=== PATIENT | male | born 1975 | race Native Hawaiian/Other Pacific Islander ===

== ENCOUNTER 2016-11-07 13:55 | Outpatient (CLI) | payer OTHER | END 2016-11-07 15:00 | disposition home or self-care (01) | LOC: MRI 13:55 | DX: M54.17 Radiculopathy, lumbosacral region (principal) ==

== ENCOUNTER 2016-12-02 11:56 | Outpatient (CLI) | payer OTHER | END 2016-12-02 12:00 | disposition short-term general hospital (02) | LOC: AMB 11:56 | DX: M79.674 Pain in right toe(s) (principal); V49.88XA Car occupant (driver) (passenger) injured in other specified transport accidents, initial encounter; Y92.488 Other paved roadways as the place of occurrence of the external cause | CPT/HCPCS: A0425; A0429 ==

== ENCOUNTER 2016-12-02 12:00 | Emergency (ER) | payer OTHER ==
[~2016-12-02] VITALS: Ht 182.9 cm; Wt 125.6 kg
[2016-12-02 12:05] VITALS: TEMP 98.3
[2016-12-02 13:55] VITALS: BP 183/99
== END 2016-12-02 13:55 | disposition home or self-care (01) ==
LOC: ED 12:00
DX: M51.9 Unspecified thoracic, thoracolumbar and lumbosacral intervertebral disc disorder (principal); V43.62XA Car passenger injured in collision with other type car in traffic accident, initial encounter
CPT/HCPCS: 99283